=== PATIENT | female | born 1970 | race Asian ===

== ENCOUNTER 2017-09-13 15:26 | Emergency (ER) | payer MEDICAID ==
--- NOTE | 2017-09-13 15:33 | EDPHY ---
H & P HPI/ROS: CHIEF COMPLAINT: Vomiting HISTORY OF PRESENT ILLNESS: This is a 47-year-old cantonese speaking female who has been in general good health until the past week. She reports persistent vomiting and dizziness. It is unclear whether there was any preceding event. She has been trying to remain hydrated but most of what she takes in comes back out. She is not having diarrhea and reports a normal bowel movement this morning. She has not been aware of fever. She does not have headache but reports some neck pain at the base of her neck. She opens her eyes she feels dizzy, as if the room is moving. Her son states that she almost tripped on the way to the car. She did fall earlier in the week but did not strike her head. She denies headache. No change in hearing. No ear pain. Her son and [id number] helped with translation. REVIEW OF SYSTEMS: A ten point review of systems was performed and is negative with the exception of the items mentioned in the HPI. Past medical history: Negative Past surgical history: Negative Family history: She is here with her son and [id number]. Social history: No tobacco or alcohol use. General Appearance: Alert. Eyes closed but will open them when asked to do so. Vital signs reviewed and normal except for blood pressure of 123/74.. Eyes: Pupils equal and round, no conjunctival injection, no discharge. Anicteric. ENT, Mouth: Mucous membranes are moist, no oropharyngeal erythema or edema. Tympanic membranes normal bilaterally. Neck: No lymphadenopathy, supple. Nontender to palpation of the cervical spine. She does have some tenderness the base of her cervical spine in the paraspinous muscles, more so on the left than on the right. No muscle spasm. Respiratory: Lungs are clear to auscultation; no wheezes, rales, or rhonchi. Cardiovascular: Regular rate and rhythm; no murmur, rub, or gallop. Gastrointestinal: Abdomen is soft and nontender, no masses or organomegaly, bowel sounds normal. Skin: Warm and dry, no rashes on exposed skin, normal color. Back: Nontender to palpation over the thoracolumbar spine. No CVAT. Extremities: No lower extremity edema, no calf tenderness or swelling. Neurological: Alert and oriented. Moving all four extremities easily and equally. Cranial nerves II through XII are examined and are intact (visual acuity not tested). Strength is 5 over 5 bilaterally with testing of all major motor groups. Sensation is intact to light touch over all 4 extremities. Psychiatric: Normal affect. Constitutional: Initial Vital Signs Temperature (C) 36.3 C 09/13/17 15:30 Heart Rate 69 09/13/17 15:30 Respiratory Rate 16 09/13/17 15:30 Blood Pressure 123/74 H 09/13/17 15:30 O2 Sat (%) 96 09/13/17 15:30 O2 Delivery Mode Room Air O2 (L/minute) 2 Allergies/Adverse Reactions: No Known Allergies Allergy (Verified 09/13/17 15:30) Home Medications: Medication Instructions Recorded Meclizine HCl 25 mg PO TID #15 tablet 09/13/17 Ondansetron Odt [Zofran Odt 4 mg 4 mg PO Q4 PRN #10 tab 09/13/17 (RX)] Medical Decision Making ED Course/Re-evaluation: Persistent vomiting and dizziness over the past week. There are features of this that sounds like vertigo. She does not appear dehydrated and her abdominal exam is benign -- I think an intra-abdominal process is unlikely. She does not have diarrhea, no one else is sick and I do not think that this is a gastroenteritis. She is being given 1 L IV normal saline, Zofran IV, and Valium IV. Neurologic exam is normal. 4:10 p.m.. Patient was re-evaluated. She is feeling better after receiving Valium, Zofran, and IV fluids. The disease dizziness is resolved. She is able to turn her head and move her eyes side to side without feeling vertiginous. 5:00 p.m.: Patient has been able to ambulate but feels slightly dizzy when she does so. Will give a dose of oral meclizine, 25 mg. It is my impression that she has a peripheral vertigo. At this point in time I am not recommending imaging. Neurologic exam is normal. No headache. No trauma. She was able to walk to the bathroom without difficulty. A Mandarin Slovak manager food beverage was obtained via the telephone and her questions were answered using this manager food beverage. She is discharged home in improved condition. Differential Diagnosis: Dizziness including but not limited to peripheral and central causes of vertigo , orthostatic causes including dehydration, and blood loss. Vertigo including but not limited to peripheral causes such as benign positional vertigo, Meniere' s disease, viral labyrinthitis and central causes such as CVA, and tumor. - Data Points Laboratory Results: Laboratory Results 09/13/17 15:43 09/13/17 15:43 09/13/17 09/13/17 09/13/17 15:43 15:43 15:43 WBC 7.03 10^3/uL 10^3/uL (3.80-9.50) RBC 5.52 10^6/uL H 10^6/uL (4.18-5.33) Hgb 16.0 g/dL g/dL (12.6-16.3) Hct 46.6 % % (38.0-47.0) MCV 84.4 fL fL (81.5-99.8) MCH 29.0 pg pg (27.9-34.1) MCHC 34.3 g/dL g/dL (32.4-36.7) RDW 11.8 % % (11.5-15.2) Plt Count 347 10^3/uL 10^3/uL (150-400) MPV 9.3 fL fL (8.7-11.7) Neut % (Auto) 74.5 % H % (39.3-74.2) Lymph % (Auto) 19.2 % % (15.0-45.0) [place] % (Auto) 5.1 % % (4.5-13.0) Eos % (Auto) 0.3 % L % (0.6-7.6) Baso % (Auto) 0.6 % % (0.3-1.7) Nucleat RBC Rel Count 0.0 % % (0.0-0.2) Absolute Neuts (auto) 5.24 10^3/uL 10^3/uL (1.70-6.50) Absolute Lymphs (auto) 1.35 10^3/uL 10^3/uL (1.00-3.00) Absolute Monos (auto) 0.36 10^3/uL 10^3/uL (0.30-0.80) Absolute Eos (auto) 0.02 10^3/uL L 10^3/uL (0.03-0.40) Absolute Basos (auto) 0.04 10^3/uL 10^3/uL (0.02-0.10) Absolute Nucleated RBC 0.00 10^3/uL 10^3/uL (0-0.01) Immature Gran % 0.3 % % (0.0-1.1) Immature Gran # 0.02 10^3/uL 10^3/uL (0.00-0.10) Sodium 142 mEq/L mEq/L (135-145) Potassium 3.5 mEq/L mEq/L (3.5-5.2) Chloride 102 mEq/L mEq/L (97-110) Carbon Dioxide 18 mEq/l L mEq/l (22-31) Anion Gap 22 mEq/L H mEq/L (8-16) BUN 10 mg/dL mg/dL (7-23) Creatinine 0.6 mg/dL mg/dL (0.6-1.0) Estimated GFR > 60 Glucose 95 mg/dL mg/dL (70-100) Calcium 9.6 mg/dL mg/dL (8.5-10.4) Total Bilirubin 0.6 mg/dL mg/dL (0.1-1.4) Conjugated Bilirubin 0.1 mg/dL mg/dL (0.0-0.5) Unconjugated Bilirubin 0.5 mg/dL mg/dL (0.0-1.1) AST 15 IU/L IU/L (14-46) ALT 19 IU/L IU/L (9-52) Alkaline Phosphatase 84 IU/L IU/L (38-126) Total Protein 8.1 g/dL g/dL (6.3-8.2) Albumin 4.6 g/dL g/dL (3.5-5.0) Lipase 114 IU/L IU/L (23-300) Beta HCG, Qual NEGATIVE Medications Given: Discontinued Medications Diazepam (Valium) 2 mg IVP EDNOW ONE Stop: 09/13/17 15:51 Last Admin: 09/13/17 16:06 Dose: 2 mg Sodium Chloride (Ns) 1,000 mls @ 0 mls/hr IV EDNOW ONE; Wide Open PRN Reason: Protocol Stop: 09/13/17 15:49 Last Admin: 09/13/17 15:45 Dose: 1,000 mls Meclizine HCl (Meclizine Hcl) 25 mg PO ONCE ONE Stop: 09/13/17 17:03 Last Admin: 09/13/17 17:08 Dose: 25 mg Ondansetron HCl (Zofran) 4 mg IVP EDNOW ONE Stop: 09/13/17 15:49 Last Admin: 09/13/17 15:58 Dose: 4 mg Departure - Departure Disposition: Home, Routine, Self-Care Clinical Impression: Vertigo Condition: Good Instructions: Vertigo (ED) Additional Instructions: Use the Zofran (put one wafer under your tongue and let it dissolve) for nausea if needed. You can take the zofran every four hours if needed. Use the Meclizine, 25 mg every 6-8 hours, for dizziness if it comes back. I am referring you to Dr. Kelly for primary care. SOURAV Talavera, see patients with vertigo, which is what I think you have. She works at [employer] and [employer]. If you continue with dizziness/ vertigo you should schedule an appointment with her. Referrals: Autumn Kelly MD [Medical Doctor] - As per Instructions Viktoria Reddy PA [Physician Acute Care Registered Nurse] - As per Instructions Prescriptions: Meclizine HCl 25 mg PO TID #15 tablet Ondansetron Odt [Zofran Odt 4 mg (RX)] 4 mg PO Q4 PRN #10 tab PRN Reason: nausea Print Language: Slovak Mandarin
[2017-09-13 15:36] VITALS: TEMP 97.3
[2017-09-13] MEDS ORDERED: ONDANSETRON 4 MG/2 ML VIAL IVP ONE (15:48)
[2017-09-13] MEDS ORDERED: NS 1,000 ML IV ONE (15:48)
[2017-09-13] MEDS ORDERED: DIAZEPAM 10 MG/2 ML SYR IVP ONE (15:50)
[2017-09-13 15:55] LABS: PLATELET COUNT 347 10^3/uL (150-400)
[2017-09-13 16:08] VITALS: O2SAT 98
[2017-09-13] MEDS ORDERED: MECLIZINE HCL 25 MG TAB PO ONE (17:02)
[2017-09-13 17:51] VITALS: BP 125/74; PULSE 73; RESP 16
== END 2017-09-13 18:56 | disposition home or self-care (01) ==
LOC: CED 15:26
DX: R42 Dizziness and giddiness (principal); E86.9 Volume depletion, unspecified
CPT/HCPCS: 80048-PO; 80076-PO; 83690-PO; 84703-PO; 85025-PO; 96374; J2405